=== PATIENT | male | born 2000 | race Caucasian/White ===

== ENCOUNTER 2020-11-28 00:09 | Emergency (ER) | payer MEDICAID, OTHER ==
[~2020-11-28] VITALS: Ht 193 cm; Wt 125.2 kg
[2020-11-28] MEDS ORDERED: IBUPROFEN 600 MG TAB PO ONE (04:30)
[2020-11-28 06:00] VITALS: BP 139/87
== END 2020-11-28 07:29 | disposition home or self-care (01) ==
LOC: ER 00:15
DX: S38.02XA Crushing injury of scrotum and testis, initial encounter (principal); X58.XXXA Exposure to other specified factors, initial encounter; Y93.89 Activity, other specified; Y92.89 Other specified places as the place of occurrence of the external cause; Y99.8 Other external cause status
CPT/HCPCS: 76870